=== PATIENT | female | born 1970 | race Caucasian/White ===

== ENCOUNTER 2018-03-13 10:10 | Emergency (ER) | payer OTHER ==
[~2018-03-13] VITALS: Ht 175.3 cm; Wt 98.0 kg
[2018-03-13 10:15] VITALS: BP 104/69
[2018-03-13] MEDS ORDERED: KETOROLAC 30 MG/1 ML ONE (10:49)
[2018-03-13] MEDS ORDERED: OXYcodone/APAP 5/325MG TABLET ONE (10:49)
[2018-03-13] MEDS ORDERED: DIAZEPAM 5 MG TABLET ONE (10:49)
[2018-03-13] MEDS ORDERED: OXYcodone/APAP 5/325MG TABLET PO ONE (11:00)
[2018-03-13] MEDS ORDERED: DIAZEPAM 5 MG TABLET PO ONE (11:00)
[2018-03-13] MEDS ORDERED: KETOROLAC 30 MG/1 ML IM ONE (11:00)
== END 2018-03-13 13:39 | disposition home or self-care (01) ==
LOC: ED 13:33
DX: M51.16 Intervertebral disc disorders with radiculopathy, lumbar region (principal); Z87.891 Personal history of nicotine dependence
CPT/HCPCS: 72110; 72148; 96372; 99284; J1885; J7512